=== PATIENT | male | born 1975 | race Caucasian/White ===

== ENCOUNTER 2018-09-16 10:14 | Emergency (ER) | payer OTHER, BC ==
[~2018-09-16] VITALS: Ht 170.2 cm; Wt 104.5 kg
[2018-09-16] MEDS ORDERED: LISI-538 PO (10:29)
[2018-09-16] MEDS ORDERED: VITA100066 PO (10:29)
[2018-09-16] MEDS ORDERED: ATOR1TAB21 PO (10:29)
[2018-09-16] MEDS ORDERED: OMEP-218 PO (10:29)
[2018-09-16] MEDS ORDERED: NORCOTAB PO (11:38)
[2018-09-16] MEDS ORDERED: NORCO, ANEXSIA 5/325MG TABLET (HYDROcodone/ACETAMINOPHEN) PO ONE (11:45)
--- NOTE | 2018-09-16 12:15 | REP ---
RIGHT ANKLE COMPLETE: 09/16/2018. Clinical history: Trauma. Findings: Four views are provided. There is soft tissue swelling anterolateral aspect of the ankle. There is a small Achilles calcaneal spur. Distal tibia and fibula are without any definite fracture. Mortise joint was symmetric and preserved with no talar dome osteochondral defect. Subtalar joints are intact. Talonavicular and calcaneocuboid joints normal. Impression: 1. Soft tissue swelling anterolateral aspect of the ankle without visible or displaced fracture, avulsion, disruption of the mortise joint or other acute bony finding. 2. Small Achilles insertional spur. Electronically Signed by Lew Olvera MD 09/16/2018 09:16 P
[2018-09-16 12:21] VITALS: BP 140/84
== END 2018-09-16 12:33 | disposition home or self-care (01) ==
LOC: M ED 10:14
DX: S93.401A Sprain of unspecified ligament of right ankle, initial encounter (principal); W00.0XXA Fall on same level due to ice and snow, initial encounter; Y92.89 Other specified places as the place of occurrence of the external cause; Y99.0 Civilian activity done for income or pay; I10 Essential (primary) hypertension; Z79.899 Other long term (current) drug therapy

== ENCOUNTER → 2020-07-01 | Outpatient (CLI) | payer SELFPAY ==
[~2020-07-01] MED LIST: ATOR1TAB21 PO; HYDR-3715 PO; LISI-538 PO; OMEP-218 PO; VITA100066 PO
== END ==
LOC: M LABSMTC 08:19
PROVIDERS: ATTEND Pediatrics
DX: Z20.828 Contact with and (suspected) exposure to other viral communicable diseases (principal)

== ENCOUNTER 2021-01-05 09:51 | Emergency (ER) | payer BC, OTHER ==
[~2021-01-05] VITALS: Ht 172.7 cm; Wt 104.1 kg
[~2021-01-05 09:51] MED LIST changes: -LISI-538 PO; +LISI20TA33 PO
[2021-01-05] MEDS ORDERED: METF-838 (10:12)
[2021-01-05] MEDS ORDERED: FLUO5OI TOP (11:41)
[2021-01-05 12:09] VITALS: BP 142/82
== END 2021-01-05 12:27 | disposition home or self-care (01) ==
LOC: M ED 09:51
DX: L25.9 Unspecified contact dermatitis, unspecified cause (principal); I10 Essential (primary) hypertension; Z79.899 Other long term (current) drug therapy

== ENCOUNTER → 2021-05-18 | Outpatient (CLI) | payer BC, OTHER ==
[~2021-05-18] MED LIST changes: +D31000TA2 PO; +FLUO5OI TOP; +IRON325T2 PO; +METF-838; +VITA100T59 PO
== END ==
LOC: M LABSMTC 09:37
PROVIDERS: ATTEND Anesthesiology
DX: Z01.812 Encounter for preprocedural laboratory examination (principal); Z20.822 Contact with and (suspected) exposure to COVID-19

== ENCOUNTER 2021-05-23 07:57 | Day surgery (SDC) | payer OTHER ==
[~2021-05-23] VITALS: Ht 170.2 cm; Wt 101.2 kg
[~2021-05-23 07:57] MED LIST changes: +NS 1,000 ML IV ONE
--- OUTSIDE RECORDS SUMMARY | 2021-05-23 08:00 | CCD | Continuity of Care Document ---
Author Author Keven ESCALANTE Organization Unknown Address [address] [facility] [facility], [address] [place] [address] Phone [phone] Care Team Providers Care Spray Dry Operator Name Role Phone AUTM Unavailable No PCP AUTM Unavailable Champ Hernandez M.D. AUTM [phone] Problems Active Problems Provider Date Essential hypertension DORIE Verduzco Onset: 03/29/2021 Social History Type Date Description Comments Sex Unknown ETOH Use 2 A Week Recreational Drug Use Denies Drug Use Tobacco Use Start: Unknown Denies Smoking Allergies, Adverse Reactions, Alerts Description No Known Drug Allergies Medications Active Medications SIG Qnty Indications Ordering Provide r Date Lisinopril 20mg Tablets 1 tab by mouth every day Unknown Omeprazole 20mg Capsules DR 1 by mouth every day Unknown Atorvastatin Calcium 20mg Tablets 1 tab by mouth every day Unknown Ferrous Sulfate 325(65Fe) mg Table ts every day Unknown Immunizations Description No Information Available Vital Signs Date Vital Result Comment 03/29/2021 1:16pm BP Systolic 138 mmHg BP Diastolic 82 mmHg Body Temperature 99.8 F Height 67 inches 5'7" Weight 226.00 lb BMI (Body Mass Index) 35.4 kg/m2 [place] Body Weight 148 lb Weight 102.514 kg BSA (Body Surface Area) 2.13 m2 Results Description No Information Available Procedures Date Code Description Status 03/29/2021 78276 Office/Outpatient New Moderate M DM 45-59 Minutes Completed Medical Devices Description No Information Available Encounters Type Date Location Provider Dx Diagnosis Office Visit 03/29/2021 1:15p [facility] DORIE Foley D50.9 Iron deficiency anemia, unspecified K21.9 Gastro-esophageal reflux dis ease without esophagitis G47.33 Obstructive sleep apnea (marcos lt) (pediatric) Assessments Date Code Description Provider 03/29/2021 D50.9 Iron deficiency anemia, unspecif ied DORIE Verduzco 03/29/2021 K21.9 Gastro-esophageal reflux disease without esophagitis DORIE Verduzco 03/29/2021 G47.33 Obstructive sleep apnea (adult) (pediatric) DORIE Verduzco Plan of Treatment Future Appointment(s):* 06/05/2021 9:00 am - DORIE Verduzco at [facility] * 05/23/2021 9:30 am - Raleigh Lopez DO at [facility] 03/29/2021 - DORIE Verduzco* D50.9 Iron deficiency anemia, unspecified * K21.9 Gastro-esophageal reflux disease without esophagitis * G47.33 Obstructive sleep apnea (adult) (pediatric) Functional Status Description No Information Available Mental Status Description No Information Available Referrals Refer to Dr Reason for Referral Status Appt Date Raleigh Lopez D.O. EGD/COLONOSCOPY Scheduled [address] [address] [phone]
--- OUTSIDE RECORDS SUMMARY | 2021-05-23 08:00 | CCD | Continuity of Care Document ---
Author Author Keven ESCALANTE Organization Unknown Address [address] [place] [address] [address] [place] [address] Phone [phone] Care Team Providers Care Monotype Operator Name Role Phone AUTM Unavailable No PCP AUTM Unavailable Problems Active Problems Provider Date Essential hypertension [...] lb BMI (Body Mass Index) 35.4 kg/m2 [place] Body Weight 148 lb Weight 102.514 kg BSA (Body Surface Area) 2.13 m2 Results Description No Information Available Procedures Description No Information Available Medical Devices Description No Information Available Encounters Description No Information Available Assessments Date Code Description Provider 03/29/2021 D50.9 Iron deficiency anemia, unspecif ied DORIE Verduzco Plan of Treatment No Information Available Functional Status Description No Information Available Mental Status Description No Information Available Referrals Refer to Reason for Referral Status Appt Date Raleigh Lopez D.O. EGD/COLONOSCOPY Scheduled [address] [place] [address] [phone]
--- OUTSIDE RECORDS SUMMARY | 2021-05-23 08:00 | CCD ---
Author Author [facility] Organization [facility] Address Unknown Phone Unavailable Care Team Providers Care Ferryboat Captain Name Role Phone Kathryn Coello PA Unavailable Unavailable CoelloKathryn robbins PA Unavailable Unavailable CoelloKathryn robbins PA Unavailable Unavailable CoelloKathryn PA Unavailable Unavailable CoelloKathryn robbins PA Unavailable Unavailable CoelloKathryn PA Unavailable Unavailable CoelloKathryn robbins PA Unavailable Unavailable CoelloKathryn PA Unavailable Unavailable CoelloKathryn PA Unavailable Unavailable Coello, Kathryn Rowleyn PA Unavailable Unavailable Centeno, L Joyce RPA Unavailable Unavailable Centeno, L Joyce RPA Unavailable Unavailable Centeno, L Joyce RPA Unavailable Unavailable Centeno, L Joyce RPA Unavailable Unavailable Centeno, L Joyce RPA Unavailable Unavailable Centeno, L Joyce RPA Unavailable Unavailable Centeno, L Joyec RPA Unavailable Unavailable Centeno, L Joyce RPA Unavailable Unavailable Centeno, L Joyce RPA Unavailable Unavailable Centeno, L Joyce RPA Unavailable Unavailable Centeno, L Joyce RPA Unavailable Unavailable Centeno, L Joyce RPA Unavailable Unavailable Centeno, L Joyce RPA Unavailable Unavailable Centeno, L Joyce RPA Unavailable Unavailable Centeno, L Joyce RPA Unavailable Unavailable Centeno, L Joyce RPA Unavailable Unavailable Centeno, L Joyce RPA Unavailable Unavailable Centeno, L Joyce RPA Unavailable Unavailable Centeno, L Joyce RPA Unavailable Unavailable Centeno, L Joyce RPA Unavailable Unavailable Centeno, L Joyce RPA Unavailable Unavailable Centeno, L Joyce RPA Unavailable Unavailable Centeno, L Joyce RPA Unavailable Unavailable Centeno, L Joyce RPA Unavailable Unavailable Centeno, L Joyce RPA Unavailable Unavailable Centeno, L Joyce RPA Unavailable Unavailable Centeno, L Joyce RPA Unavailable Unavailable Centeno, L Joyce RPA Unavailable Unavailable Centeno, L Joyce RPA Unavailable Unavailable Centeno, L Joyce RPA Unavailable Unavailable Centeno, L Joyce RPA Unavailable Unavailable Centeno, L Joyce RPA Unavailable Unavailable Re-disclosure Warning The records that you are about to access may contain information from federally-assisted alcohol or drug abuse programs. If such information is present, then the following federally mandated warning applies: This information has been disclosed to you from records protected by federal confidentiality rules (42 CFR part 2). The federal rules prohibit you from making any further disclosure of this information unless further disclosure is expressly permitted by the written consent of the person to whom it pertains or as otherwise permitted by 42 CFR part 2. A general authorization for the release of medical or other information is NOT sufficient for this purpose. The Federal rules restrict any use of the information to criminally investigate or prosecute any alcohol or drug abuse patient.The records that you are about to access may contain highly sensitive health information, the redisclosure of which is protected by Article 27-F of the [facility] Public Health law. If you continue you may have access to information: Regarding HIV / AIDS; Provided by facilities licensed or operated by the [facility] Office of Mental Health; or Provided by the [facility] Office for People With Developmental Disabilities. If such information is present, then the following [facility] mandated warning applies: This information has been disclosed to you from confidential records which are protected by state law. State law prohibits you from making any further disclosure of this information without the specific written consent of the person to whom it pertains, or as otherwise permitted by law. Any unauthorized further disclosure in violation of state law may result in a fine or shelter sentence or both. A general authorization for the release of medical or other information is NOT sufficient authorization for further disc losure. Encounters Encounter Providers Location Date Indications Data Source(s ) Outpatient Attender: Joyce Bush/Daniel/James/Sheila odonnell 03/29/2021 01:15:00 PM EDT [facility] ([facility] Outpatient Attender: Angie Blackman christy 04/16/2020 03:00:00 PM EDT [facility] ([facility] Immunizations Vaccine Date Status Description Data Source(s) COVID-19 VACCINE Moderna 01/03/2021 12:00:00 AM EDT completed [place] Vaccine Series Complete: YESThis Data wa s Submitted to [place] Via [email or web address]. COVID-19 VACCINE Moderna 12/06/2020 12:00:00 AM EDT completed [facility] Vaccine Series Complete: NOThis Data was Submitted to [place] Via [email or web address]. Medications Medication Brand Name Start Date Product Form Dose Route Admi nistrative Instructions Pharmacy Instructions Status Indications Reaction Description Data Source(s) 0.05 % 01/05/2021 12:00:00 AM EDT ointment 60 APPLY TO AFFECTED AREA(S) TOPICALLY TWO TIMES A DAY APPLY TO AFFECTED AREA(S) TOPICALLY TWO TIMES A DAY SOLD: 01/05/2021 [facility] Insurance Providers Payer name Policy type / Coverage type Policy ID Covered constitution party ID Covered constitution party's relationship to mancuso Policy [place] [id number] [place] [id number] [place] V[place] [id number] [facility] [id number] [place] Medical [place] [id number] SELF [id number] [employer] INSURANCE FUND [id number] SP [id number] SELF PAY ONLY [id number] SP [id number] [facility] FEDERAL EMPLOYEE PROGRAM [id number] SP [id number] [facility] O [id number] S [id number] [facility] INSURANCE FUND [id number] SP [id number] [facility] B [id number] S [id number] [employer] [facility] FEDERAL [id number] SP [id number] SELF PAY O [id number] S O UNAVAILABLE UNAVAILA BLE [facility] O [id number] S [id number] [place] FEDERAL [id number] SP [id number] 'S ADMINISTRATION [id number] SP [id number] [facility] [id number] SP [id number] [facility] LIM[facility] GUAJARDO DIV [id number] SP [id number] Problems, Conditions, and Diagnoses Code Display Name Description Problem Type Effective Dates Data Source(s) 06113245 Essential hypertension Essential hypertension Problem 03/29/2021 12:00:00 AM EDT [facility] ([facility], ) Surgeries/Procedures Procedure Description Date Indications Data Source(s) OFFICE OUTPATIENT NEW 45 MINUTES 03/29/2021 12:00:00 A M EDT [facility] ([facility]) Results ID Date Data Source [id number] 07/02/2020 12:00:00 AM EST [facility] Name Value Range Interpretation Code Description Data Renetta rce(s) Supporting Document(s) 2019-nCoV RNA XXX JAYLIN+probe-Imp [facility] This lab was ordered by [facility] and reported by [employer] Procedure Social History Code Duration Value Status Description Data Source(s ) Smoking 04/16/2020 12:00:00 AM EDT Patient has never smoked co mpleted Patient has never smoked [facility] ([facility]) Vital Signs ID Date Data Source UNK Name Value Range Interpretation Code Description Data Source(s) Systolic blood pressure 138 mm[Hg] 138 mm[Hg] M [facility] ([facility], ) Diastolic blood pressure 82 mm[Hg] 82 mm[Hg] [facility] ([facility]) Body temperature 99.8 [degF] 99.8 [degF] [facility] ([facility]) Body height 67 [in_i] 67 [in_i] [facility] 5'7" Body weight 226.00 [lb_av] 226.00 [lb_av] [facility] ([facility]) Body mass index (BMI) [Ratio] 35.4 kg/m2 35.4 k g/m2 [facility] ([facility]) [place] body weight 148 [lb_av] 148 [lb_av] [facility] ([facility]) Body weight 102.514 kg 102.514 kg [facility] ([facility]) Body surface area Derived from formula 2.13 m2 2.13 m2 [facility] ([facility]) Systolic blood pressure 135 mm[Hg] 135 mm[Hg] [facility] ([facility], [facility]) Diastolic blood pressure 78 mm[Hg] 78 mm[Hg] [facility] ([facility]) Heart rate 115 /min 115 /min [facility] ([facility]) Oxygen saturation in Arterial blood by Pulse oximetry 97 % 97 % [facility] ([facility]) Body temperature 99.7 [degF] 99.7 [degF] [facility] ([facility], [facility]) Body weight 235.00 [lb_av] 235.00 [lb_av] [facility] ([facility], [facility]) Body height 67 [in_i] 67 [in_i] [facility] ([facility]) 5'7" Body mass index (BMI) [Ratio] 36.8 kg/m2 36.8 k g/m2 [facility] ([facility])
[2021-05-23] MEDS ORDERED: LIDOCAINE 2% 100MG/5ML SDV (FOR ANES.) As Ordered ONE (08:23)
[2021-05-23] MEDS ORDERED: propofoL 200 MG/20 ML VIAL As Ordered ONE (08:23)
[2021-05-23] MEDS ORDERED: fentaNYL 100 MCG/2 ML INJECTION (J3010) As Ordered ONE (09:32)
--- NOTE | 2021-05-23 09:53 | ROOR ---
Patient Name: Keven Patel Procedure Date: 05/23/2021 9:24 AM Date of : 1975 Age: 46 Room: [facility] Gender: Male Note Status: Finalized Procedure: Upper GI endoscopy Indications: Suspected esophageal reflux Providers: DO Zafar Castellanos MD: [facility], Admin. Requesting Provider: Medicines: Propofol per Anesthesia Complications: No immediate complications. Procedure: Pre-Anesthesia Assessment: - Prior to the procedure, a History and Physical was performed, and patient medications and allergies were reviewed. The patient is competent. The risks and benefits of the procedure and the sedation options and risks were discussed with the patient. All questions were answered and informed consent was obtained. Patient identification and proposed procedure were verified by the physician, the nurse, the anesthesiologist and the biomedical technician in the endoscopy suite. Mental Status Examination: alert and oriented. Airway Examination: normal oropharyngeal airway and neck mobility. Respiratory Examination: clear to auscultation. CV Examination: normal. Prophylactic Antibiotics: The patient does not require prophylactic antibiotics. Prior Anticoagulants: The patient has taken no previous anticoagulant or antiplatelet agents. ASA Grade Assessment: II - A patient with mild systemic disease. After reviewing the risks and benefits, the patient was deemed in satisfactory condition to undergo the procedure. The anesthesia plan was to use monitored anesthesia care (MAC). Immediately prior to administration of medications, the patient was re-assessed for adequacy to receive sedatives. The heart rate, respiratory rate, oxygen saturations, blood pressure, adequacy of pulmonary ventilation, and response to care were monitored throughout the procedure. The physical status of the patient was re-assessed after the procedure. The Endoscope was introduced through the mouth, and advanced to the third part of duodenum. The upper GI endoscopy was accomplished without difficulty. The patient tolerated the procedure well. Findings: Multiple less than 5 mm pedunculated polyps with no bleeding and no stigmata of recent bleeding were found in the entire examined stomach. The polyp was removed with a cold biopsy forceps. Resection and retrieval were complete. Estimated blood loss was minimal. The exam of the stomach was otherwise normal. Biopsies were taken with a cold forceps in the prepyloric region of the stomach for Helicobacter pylori testing. Estimated blood loss was minimal. Impression: - Multiple gastric polyps. Resected and retrieved. - Biopsies were taken with a cold forceps for Helicobacter pylori testing. Recommendation: - Patient has a contact number available for emergencies. The signs and symptoms of potential delayed complications were discussed with the patient. Return to normal activities tomorrow. Written discharge instructions were provided to the patient. - Await pathology results. - Return to physician ssn/ssbn assistant navigator at appointment to be scheduled. Procedure Code(s): --- Professional --- 28887, Esophagogastroduodenoscopy, flexible, transoral; with biopsy, single or multiple Diagnosis Code(s): --- Professional --- K31.7, Polyp of stomach and duodenum CPT copyright 2019 [employer]. All rights reserved. The codes documented in this report are preliminary and upon prepper review may be revised to meet current compliance requirements. Raleigh Lopez DO 05/23/2021 9:53:13 AM Electronically signed by Raleigh Lopze DO Number of Addenda: 0 Note Initiated On: 05/23/2021 9:24 AM Estimated Blood Loss: Estimated blood loss was minimal.
--- NOTE | 2021-05-23 09:57 | ROOR ---
Patient Name: Keven Patel Procedure Date: 05/23/2021 9:25 AM Date of : 1975 Age: 46 Room: [facility] Gender: Male Note Status: Finalized Procedure: Colonoscopy Indications: Iron deficiency anemia Providers: DO Zafar Castellanos MD: [facility], Admin. Requesting Provider: Medicines: Propofol per Anesthesia Complications: No immediate complications. Procedure: Pre-Anesthesia Assessment: - Prior to the procedure, a History and Physical was performed, and patient medications and allergies were reviewed. The patient is competent. The risks and benefits of the procedure and the sedation options and risks were discussed with the patient. All questions were answered and informed consent was obtained. Patient identification and proposed procedure were verified by the physician, the nurse, the anesthesiologist and the school bus technician in the endoscopy suite. Mental Status Examination: alert and oriented. Airway Examination: normal oropharyngeal airway and neck mobility. Respiratory Examination: clear to auscultation. CV Examination: normal. Prophylactic Antibiotics: The patient does not require prophylactic antibiotics. Prior Anticoagulants: The patient has taken no previous anticoagulant or antiplatelet agents. ASA Grade Assessment: II - A patient with mild systemic disease. After reviewing the risks and benefits, the patient was deemed in satisfactory condition to undergo the procedure. The anesthesia plan was to use monitored anesthesia care (MAC). Immediately prior to administration of medications, the patient was re-assessed for adequacy to receive sedatives. The heart rate, respiratory rate, oxygen saturations, blood pressure, adequacy of pulmonary ventilation, and response to care were monitored throughout the procedure. The physical status of the patient was re-assessed after the procedure. The Colonoscope was introduced through the anus and advanced to the cecum, identified by appendiceal orifice and ileocecal valve. The colonoscopy was performed without difficulty. The patient tolerated the procedure well. Findings: Three hyperplastic polyps were found in the sigmoid colon and transverse colon. The polyps were less than 5 mm in size. These polyps were removed with a cold biopsy forceps. Resection and retrieval were complete. Estimated blood loss was minimal. Non-bleeding internal hemorrhoids were found during retroflexion. The hemorrhoids were mild and Grade I (internal hemorrhoids that do not prolapse). Impression: - Three less than 5 mm polyps in the sigmoid colon and in the transverse colon, removed with a cold biopsy forceps. Resected and retrieved. - Non-bleeding internal hemorrhoids. Recommendation: - Patient has a contact number available for emergencies. The signs and symptoms of potential delayed complications were discussed with the patient. Return to normal activities tomorrow. Written discharge instructions were provided to the patient. - Await pathology results. - Repeat colonoscopy in 3 - 5 years for surveillance based on pathology results. - Return to physician assistant foreman at appointment to be scheduled. Procedure Code(s): --- Professional --- 85218, Colonoscopy, flexible; with biopsy, single or multiple Diagnosis Code(s): --- Professional --- K63.5, Polyp of colon K64.0, First degree hemorrhoids D50.9, Iron deficiency anemia, unspecified CPT copyright 2019 [employer]. All rights reserved. The codes documented in this report are preliminary and upon engraver optical frames review may be revised to meet current compliance requirements. Raleigh Lopez DO 05/23/2021 9:56:50 AM Electronically signed by Raleigh Lopez DO Number of Addenda: 0 Note Initiated On: 05/23/2021 9:25 AM Estimated Blood Loss: Estimated blood loss was minimal.
[2021-05-23 10:15] VITALS: BP 127/83
== END 2021-05-23 10:30 | disposition home or self-care (01) ==
LOC: M OPP 07:57
PROVIDERS: ATTEND Surgery
DX: K63.5 Polyp of colon (principal); K64.0 First degree hemorrhoids; D50.9 Iron deficiency anemia, unspecified; K31.7 Polyp of stomach and duodenum; K21.9 Gastro-esophageal reflux disease without esophagitis; Z79.899 Other long term (current) drug therapy; F17.210 Nicotine dependence, cigarettes, uncomplicated
CPT/HCPCS: 43239; 45380; 88305; J3010

== ENCOUNTER → 2022-04-11 | Outpatient (CLI) | payer OTHER ==
[~2022-04-11] MED LIST changes: -D31000TA2 PO; +FLUO-215 TOP; -FLUO5OI TOP; -NS 1,000 ML IV ONE; +OMEP-173 PO; -OMEP-218 PO; +PROHANCE 279.3MG/ML 15ML VIAL As Ordered ONE; +PROHANCE 279.3MG/ML 5ML VIAL As Ordered ONE; +VITA100093 PO
== END ==
LOC: M RAD 08:07
PROVIDERS: ATTEND Internal Medicine Gastroenterology
DX: K76.0 Fatty (change of) liver, not elsewhere classified (principal); K76.89 Other specified diseases of liver
CPT/HCPCS: 74183; A9576

== ENCOUNTER → 2023-11-20 | Outpatient (REF) ==
[~2023-11-20] MED LIST changes: -FLUO-215 TOP; +FLUO5OI TOP; -PROHANCE 279.3MG/ML 15ML VIAL As Ordered ONE; -PROHANCE 279.3MG/ML 5ML VIAL As Ordered ONE
== END ==
LOC: M PLAIMG 10:32
PROVIDERS: ATTEND Nurse Practitioner Family
DX: M54.59 Other low back pain (principal)